=== PATIENT | male | born 1935 | race Caucasian/White ===

== ENCOUNTER → 2017-02-09 | Outpatient (CLI) | payer MEDICARE, OTHER ==
[~2017-02-09] MED LIST: AMBISOME50 MG IV; ASPIRIN 32325 MG/TA1 PO; BENADRYL50 MG PO; BENTYL 10MG10 MG/CAP PO; DITROPAN 5MG TAB5 MG PO; FOLIC ACID 11 MG/TA1 PO; HYTRIN 1MG C1 MG/CAP PO; IMDUR 60MG60 MG/TAB PO; KLOR-CON M2020 MEQ PO; LASIX 20MG TABL20 MG PO; LEVEMIR100 U/ML SQ; LOPID 600M600 MG/TAB PO; MAG-OX 400400 MG/TAB PO; MULTI VITAMINS1 TAB PO; NATURE'S BLEND100 M2 PO; NEURONTIN300 MG/CAP PO; NITROSTAT0.4 MG/TAB SL; NORCO 325 MG-101 TAB PO; NORVASC 10MG10 MG PO; NOVLOG SQ; OMEGA-31 SGL PO; PRILOSEC 20MG20 MG PO; PURINETHOL 50MG50 MG PO; SENOKOT S 50 MG1 TAB PO; SODIUM BICARBO650 MG PO; TOPAMAX 25MG25 M1 PO; TYLENOL 500MG500 MG PO; WELLBUTRIN SR100 M1 PO; ZYRTEC 10MG10 MG PO; [UNRECOGNIZED DRUG - OTHER] IV
== END ==
LOC: MHCPAIN 11:23
DX: G89.29 Other chronic pain (principal); M54.12 Radiculopathy, cervical region; M47.812 Spondylosis without myelopathy or radiculopathy, cervical region; M48.02 Spinal stenosis, cervical region
CPT/HCPCS: G0463

== ENCOUNTER → 2017-02-24 | Outpatient (CLI) | payer MEDICARE, OTHER | LOC: MHCPAIN 08:32 | DX: Z53.8 Procedure and treatment not carried out for other reasons (principal) | CPT/HCPCS: G0463; J1100; J2250; J3010; Q9967 ==

== ENCOUNTER → 2017-03-31 | Outpatient (CLI) | payer MEDICARE, OTHER | LOC: MHCPAIN 09:25 | DX: M50.123 Cervical disc disorder at C6-C7 level with radiculopathy (principal); M99.51 Intervertebral disc stenosis of neural canal of cervical region | CPT/HCPCS: J1100; Q9967 ==

== ENCOUNTER → 2017-04-27 | Outpatient (CLI) | payer MEDICARE, OTHER | LOC: MHCPAIN 12:55 | DX: G89.29 Other chronic pain (principal); M50.90 Cervical disc disorder, unspecified, unspecified cervical region; M54.12 Radiculopathy, cervical region | CPT/HCPCS: G0463 ==

== ENCOUNTER → 2017-05-25 | Outpatient (CLI) | payer OTHER, MEDICARE | LOC: MHCPAIN 10:38 | DX: Z53.8 Procedure and treatment not carried out for other reasons (principal) ==